=== PATIENT | female | born 1970 | race American Indian/Alaskan Native ===

== ENCOUNTER 2017-04-19 08:55 | Emergency (ER) | payer BC ==
[2017-04-19 08:56] VITALS: BMI 38.9
[2017-04-19 09:03] VITALS: PULSE 70; RESP 18; TEMP 97.7; O2SAT 100
--- NOTE | 2017-04-19 09:48 | C.PDOC ---
History Of Present Illness Pt presents with c/o rash to perioral area for last 2 days.Pt states it is painful and seems to be spreading.Denies any recent allergen exposure Chief Complaint (Nursing): Abnormal Skin Integrity History/Exam Limitations: no limitations Onset/Duration Of Symptoms: Days Current Symptoms Are (Timing): Still Present Quality Of Symptoms: Itching Severity: Mild Recent travel outside of the [place]: No Past Medical History Vital Signs: Last Vital Signs Temp 97.7 F 04/19/17 09:00 Pulse 70 04/19/17 09:00 Resp 18 04/19/17 09:00 BP 114/75 04/19/17 10:02 Pulse Ox 100 04/19/17 09:51 - Medical History PMH: No Chronic Diseases Denies: Depression Family History: States: Unknown Family Hx - Social History Hx Tobacco Use: No Hx Alcohol Use: No Hx Substance Use: No - Immunization History Hx Tetanus Toxoid Vaccination: Yes Hx Influenza Vaccination: Yes Hx Pneumococcal Vaccination: Yes Review Of Systems Except As Marked, All Systems Reviewed And Found Negative. Skin: Positive for: Rash, Other (pt notes white bumps to the perioral area for past few days) Physical Exam - Physical Exam Appears: Well Skin: Rash (pustular white head lesions noted to skin of chin just below lower lip times 3) Neck: Normal Lymphatic: Deferred Chest: Symmetrical Cardiovascular: Rhythm Regular Respiratory: Normal Breath Sounds Extremity: Normal ROM ED Course And Treatment O2 Sat by Pulse Oximetry: 100 Medical Decision Making Medical Decision Making: pt with likely strep/staph skin infection Disposition - Disposition Referrals: [facility] [Outside] Disposition: HOME/ ROUTINE Disposition Time: 09:48 Condition: GOOD Prescriptions: Mupirocin 2% Ointment [Bactroban Ointment] 1 appl TP BID #7 tube Instructions: Acne (ED) Forms: [employer] (Hebrew) - Clinical Impression Clinical Impression: Pustular acne
[2017-04-19 10:04] VITALS: BP 114/75
== END 2017-04-19 10:02 | disposition home or self-care (01) ==
LOC: C.ER 08:55
DX: L70.0 Acne vulgaris (principal)